=== PATIENT | male | born 1970 | race Caucasian/White ===

== ENCOUNTER 2020-06-26 12:16 | Inpatient (IN) | payer BC, SELFPAY ==
[~2020-06-26] VITALS: Ht 177.8 cm; Wt 167.8 kg
[~2020-06-26 12:16] MED LIST: VANCOMYCIN HCL 1,750 MG in NS 500 ML IV SCH
[2020-06-26 12:25] VITALS: BP_SYST 147
[2020-06-26] MEDS ORDERED: VANCOMYCIN HCL 1,000 MG in NS 250 ML IV ONE (12:45)
[2020-06-26 13:00] LABS: BASOPHILS # (AUTO) 0.1 K/uL (0.0-0.2); BASOPHILS % (AUTO) 1.3 % (0.0-2.0); EOSINOPHILS # (AUTO) 0.2 K/uL (0.0-0.4); EOSINOPHILS % (AUTO) 1.9 % (0.0-4.0); HEMATOCRIT 44.5 % (36-54); HEMOGLOBIN 15.3 g/dL (14.0-18.0); LYMPHOCYTES # (AUTO) 2.1 K/uL (1.0-5.5); LYMPHOCYTES % (AUTO) 20.9 % (20.5-51.5); MEAN CORPUSCULAR HEMOGLOBIN 32 pg (27-31); MEAN CORPUSCULAR HGB CONC 34 % (32-36); MEAN CORPUSCULAR VOLUME 92 fL (79.0-98.0); MONOCYTES # (AUTO) 0.8 K/uL (0.0-1.0); MONOCYTES % (AUTO) 7.4 % (1.7-9.3); NEUTROPHILS % (AUTO) 68.5 % (40.0-70.0); PLATELET COUNT (AUTO) 348 K/uL (130-430); RED BLOOD CELL COUNT(AUTO) 4.82 MIL/uL (4.2-6.2); RED CELL DISTRIBUTION WIDTH 12.7 % (9.0-15.0); WHITE BLOOD COUNT (AUTO) 10.1 K/uL (4.8-10.8)
[2020-06-26] MEDS ORDERED: VANCOMYCIN HCL 1000 MG/VIAL IV ONE (13:14)
[2020-06-26 13:24] LABS: CALCIUM 8.9 mg/dL (8.4-11.0); CREATININE 0.9 mg/dL (0.55-1.30); POTASSIUM 4.4 mmol/L (3.5-5.1)
[2020-06-26 13:37] LABS: ALBUMIN 3.3 g/dL (3.4-4.8); TOTAL BILIRUBIN 0.3 mg/dL (0.0-1.0)
[2020-06-26] MEDS ORDERED: LISI40TA4 PO (14:31)
[2020-06-26] MEDS ORDERED: ATEN50TA PO (14:31)
[2020-06-26] MEDS ORDERED: METF1000 PO (14:31)
[2020-06-26] MEDS ORDERED: INSU100I24 SQ (14:31)
[2020-06-26] MEDS ORDERED: HYDR25TA4 PO (14:31)
[2020-06-26] MEDS ORDERED: HUM10VIA SQ (14:31)
[2020-06-26] MEDS ORDERED: KETOROLAC TROMETHAMINE 30 MG VIAL IVP PRN (15:00)
[2020-06-26] MEDS ORDERED: MORPHINE 2 MG/ML INJ. SYRINGE IVP PRN (15:00)
[2020-06-26] MEDS ORDERED: MORPHINE 4 MG/ML INJ. SYRINGE IVP ONE (15:00)
[2020-06-26] MEDS ORDERED: VANCOMYCIN HCL 750 MG in NS 250 ML IV ONE (17:00)
[2020-06-26 19:44] VITALS: BP_SYST 139
[2020-06-27] VITALS: BP_SYST 128
[2020-06-27] MEDS ORDERED: INSULIN REGULAR, HUMAN 100 UNITS/ML, 10 ML VIAL (humuLIN R) SUBCUT PRN
[2020-06-27] MEDS ORDERED: VANCOMYCIN HCL 1,750 MG in NS 500 ML IV SCH (05:00)
[2020-06-27] MEDS: INSULIN REGULAR, HUMAN 100 UNITS/ML, 10 ML VIAL (humuLIN R) SUBCUT PRN ×4 (06:06→20:20)
[2020-06-27 07:14] LABS: BASOPHILS # (AUTO) 0.1 K/uL (0.0-0.2); BASOPHILS % (AUTO) 1.1 % (0.0-2.0); EOSINOPHILS # (AUTO) 0.3 K/uL (0.0-0.4); EOSINOPHILS % (AUTO) 3.8 % (0.0-4.0); HEMOGLOBIN 14.7 g/dL (14.0-18.0); LYMPHOCYTES # (AUTO) 2.1 K/uL (1.0-5.5); LYMPHOCYTES % (AUTO) 26.4 % (20.5-51.5); MEAN CORPUSCULAR HEMOGLOBIN 32 pg (27-31); MEAN CORPUSCULAR HGB CONC 34 % (32-36); MEAN CORPUSCULAR VOLUME 92 fL (79.0-98.0); MONOCYTES # (AUTO) 0.6 K/uL (0.0-1.0); MONOCYTES % (AUTO) 7.8 % (1.7-9.3); NEUTROPHILS # (AUTO) 4.8 K/uL (1.8-7.7); NEUTROPHILS % (AUTO) 60.9 % (40.0-70.0); PLATELET COUNT (AUTO) 326 K/uL (130-430); RED BLOOD CELL COUNT(AUTO) 4.66 MIL/uL (4.2-6.2); RED CELL DISTRIBUTION WIDTH 12.8 % (9.0-15.0); WHITE BLOOD COUNT (AUTO) 7.9 K/uL (4.8-10.8)
[2020-06-27 07:47] LABS: ALBUMIN 2.8 g/dL (3.4-4.8); C-REACTIVE PROTEIN QUANT 5.3 mg/dL (0-0.5); CALCIUM 8.5 mg/dL (8.4-11.0); CREATININE 0.79 mg/dL (0.55-1.30); POTASSIUM 3.9 mmol/L (3.5-5.1); THYROID STIMULATING HORMONE 1.57 uIu/mL (0.34-4.82); TOTAL BILIRUBIN 0.5 mg/dL (0.0-1.0)
[2020-06-27 08:24] VITALS: BP_SYST 118
[2020-06-27] MEDS: cefTRIAXone 1 GM in D5W 50 ML IV SCH (08:26)
[2020-06-27] MEDS: ATENOLOL 50 MG TABLET (TENORMIN) PO SCH ×2 (08:26→20:13)
[2020-06-27] MEDS: lisinopriL 20 MG TABLET PO SCH (08:27)
[2020-06-27] MEDS: HYDROCHLOROTHIAZIDE 25 MG TABLET (HCTZ) PO SCH (08:27)
[2020-06-27] MEDS: metFORMIN HCL 500 MG TABLET PO SCH ×2 (08:36→17:47)
[2020-06-27 09:38] LABS: ERYTHROCYTE SEDIMENTATION RATE 42 MM/HR (0-15)
[2020-06-27] MEDS: VANCOMYCIN HCL 1,750 MG in NS 500 ML IV SCH ×2 (10:55→21:38)
[2020-06-27 11:38] VITALS: BP_SYST 118
[2020-06-27] MEDS ORDERED: VANCOMYCIN HCL 1,000 MG in NS 250 ML IV SCH (13:00)
[2020-06-27 15:32] VITALS: BP_SYST 103
[2020-06-27 20:00] VITALS: BP_SYST 113
[2020-06-28 01:15] VITALS: BP_SYST 114
[2020-06-28] MEDS: INSULIN REGULAR, HUMAN 100 UNITS/ML, 10 ML VIAL (humuLIN R) SUBCUT PRN ×4 (06:14→20:36)
[2020-06-28] MEDS: ATENOLOL 50 MG TABLET (TENORMIN) PO SCH ×2 (09:19→20:31)
[2020-06-28] MEDS: lisinopriL 20 MG TABLET PO SCH (09:20)
[2020-06-28] MEDS: HYDROCHLOROTHIAZIDE 25 MG TABLET (HCTZ) PO SCH (09:21)
[2020-06-28] MEDS: metFORMIN HCL 500 MG TABLET PO SCH ×2 (09:22→17:54)
[2020-06-28] MEDS: cefTRIAXone 1 GM in D5W 50 ML IV SCH (09:24)
[2020-06-28] MEDS: VANCOMYCIN HCL 1,750 MG in NS 500 ML IV SCH ×2 (09:24→22:23)
[2020-06-28 11:30] VITALS: BP_SYST 116
[2020-06-28] MEDS: BALSAM PERU/CASTOR OIL 60 GM OINT...G. TP SCH (12:06)
[2020-06-28 15:40] VITALS: BP_SYST 136
[2020-06-28 20:00] VITALS: BP_SYST 123
[2020-06-29] VITALS: BP_SYST 112
[2020-06-29] MEDS: INSULIN REGULAR, HUMAN 100 UNITS/ML, 10 ML VIAL (humuLIN R) SUBCUT PRN ×2 (06:07→12:15)
[2020-06-29 07:50] VITALS: BP_SYST 126
[2020-06-29] MEDS ORDERED: VANCOMYCIN HCL 1,250 MG in NS 250 ML IV SCH (08:00)
[2020-06-29] MEDS: cefTRIAXone 1 GM in D5W 50 ML IV SCH (08:23)
[2020-06-29] MEDS: HYDROCHLOROTHIAZIDE 25 MG TABLET (HCTZ) PO SCH (08:24)
[2020-06-29] MEDS: lisinopriL 20 MG TABLET PO SCH (08:24)
[2020-06-29] MEDS: metFORMIN HCL 500 MG TABLET PO SCH (08:24)
[2020-06-29] MEDS: ATENOLOL 50 MG TABLET (TENORMIN) PO SCH (08:25)
[2020-06-29] MEDS: BALSAM PERU/CASTOR OIL 60 GM OINT...G. TP SCH (09:19)
[2020-06-29 11:28] VITALS: BP_SYST 131
[2020-06-29] MEDS ORDERED: DOXY100C PO (12:27)
[2020-06-29] MEDS ORDERED: SULF1TAB48 PO (12:29)
[2020-06-29 13:46] VITALS: BP_SYST 131
[2020-06-29 15:28] VITALS: BP_SYST 137
== END 2020-06-29 14:20 | disposition home or self-care (01) | DRG 603 ==
LOC: SED 12:16 → SMU 14:58
PROVIDERS: ADMIT Internal Medicine; ATTEND Internal Medicine
DX: L03.115 Cellulitis of right lower limb (principal); L97.919 Non-pressure chronic ulcer of unspecified part of right lower leg with unspecified severity; E11.9 Type 2 diabetes mellitus without complications; I10 Essential (primary) hypertension; S80.821A Blister (nonthermal), right lower leg, initial encounter; X58.XXXA Exposure to other specified factors, initial encounter; Z20.828 Contact with and (suspected) exposure to other viral communicable diseases; Z79.899 Other long term (current) drug therapy; Z88.0 Allergy status to penicillin; Z79.4 Long term (current) use of insulin; Y93.89 Activity, other specified; Y92.89 Other specified places as the place of occurrence of the external cause; Y99.8 Other external cause status
CPT/HCPCS: 36415; 73590-TC; 80053; 80061; 80202-TC; 82962; 83036; 83735-TC; 84443-TC; 85025; 85651-TC; 86140; 87040-TC; 87070-TC; 93971; J0696; J1815; J2270; J3370; J7040; J7050; J7060